=== PATIENT | female | born 1960 | race Caucasian/White ===

== ENCOUNTER 2017-01-03 10:05 | Observation (INO) | payer BC ==
--- NOTE | ~2017-01-03 | HP ---
History And Physical [id number] [facility] [place]. [address] NAME: MAUREEN LUQUE : 62 STATUS : ADM Sarah PAT#: [id number] AGE: 56 ADM/REG DATE : 01/03/17 MR#: [id number] REPORT SERV DATE: 01/03/17 DICTATED BY: FABI SUMMERS DATE: 01/03/17 REPORT STATUS : Draft TRANSCRIBED BY: PASQUALE DATE: 01/03/17 DATE OF ADMISSION: 01/03/2017 PRIMARY CARE PROVIDER: Dr. Florencio Avendaño. CHIEF COMPLAINT: Back pain. HISTORY OF PRESENT ILLNESS: This is a very pleasant 56-year-old white female with no known history of CAD, who presents to our facility describing discomfort between her shoulder blades for the past two weeks, possibly aggravated by increased stress. She also reports some oral and bilateral hand numbness that has occurred intermittently and fatigue. She denies any chest pain, pressure, or tightness. Denies any shortness of breath, nausea, diaphoresis, dizziness, or belching. The back pain at its most intense is rated at 8/10. At time of interview in the [facility], she is pain free but with a headache after the application of a transdermal nitro paste. She states the back discomfort at times lasts 20-30 minutes in duration. She did take aspirin prior to coming to the hospital. 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 The patient denies any personal history of myocardial infarction, stroke, DVT, or pulmonary embolus. The patient denies any recent fever or chills. No palpitations. No syncopal episodes. Denies PND or orthopnea. PAST MEDICAL HISTORY: 1. Depression. 2. Sleep apnea. 3. Denies hypertension, dyslipidemia, or diabetes. 4. Positive family history of early CAD. SURGICAL HISTORY: 1. Hysterectomy. 2. Tonsillectomy. 3. Cyst removed from right shoulder. SOCIAL HISTORY: She is with three children. She is employed as a nurse at [employer]. She rides a road bike eight miles twice weekly, most recently on 12/30 without incident. The patient denies any tobacco use or illicits. Occasionally consumes alcohol. FAMILY HISTORY: Father with CAD and stents in his 60s, of cancer at 74. Paternal grandmother at 48 of a heart attack. REVIEW OF SYSTEMS: A 14-point review of systems is performed, significant for HPI including reports infected right hip from hormone pellet injection two months ago for which she was treated with antibiotics, otherwise, complete review of systems is obtained and is negative. History And Physical [place] [address] [place]. [address] NAME: MAUREEN LUQUE : 62 STATUS : ADM Sarah PAT#: [id number] AGE: 56 ADM/REG DATE : 01/03/17 MR#: [id number] REPORT SERV DATE: 01/03/17 DICTATED BY: FABI SUMMERS DATE: 01/03/17 REPORT STATUS : Draft TRANSCRIBED BY: PASQUALE DATE: 01/03/17 ALLERGIES: NO KNOWN DRUG ALLERGIES HOME. HOME MEDICATIONS: Wellbutrin 300 mg daily. PHYSICAL EXAMINATION: VITAL SIGNS: Bilateral blood pressures on arrival, right 111/63 and left 112/62; pulse 64; respirations 18; temperature 98.5; O2 saturation 96% on room air. Height 5 feet 9 inches. Weight 140 pounds. BMI 20.6. GENERAL: Cooperative, in no apparent distress. HEENT: Pupils 2 mm, sclera nonicteric. Nares patent. Moist mucous membranes. No xanthelasma. NECK: Trachea midline, no thyromegaly. No JVD. No bruits. LYMPH: No cervical lymphadenopathy. No supraclavicular lymphadenopathy. RESPIRATORY: Unlabored respirations. Breath sounds clear bilaterally to posterior auscultation. No wheezes or rhonchi. No tenderness to palpation across the anterior or posterior thorax to moderate palpation on exam. CARDIOVASCULAR: Regular rate. No murmur, rub or gallop appreciated. Extremities without edema. Pulses 2+ bilaterally. ABDOMEN: Soft, nontender, nondistended, normal bowel sounds auscultated throughout. No organomegaly. SKIN: Warm, dry extremities. No pallor, or cyanosis. PSYCHIATRIC: Appropriate affect. Alert, oriented x3. LABORATORY DATA: Troponin less than 0.02, third is pending. Potassium 5.0, BUN 16, creatinine 0.82, glucose 98, magnesium 2.3. WBC 4.8, hemoglobin 14.0, hematocrit 42.7, platelet count 223,000. IMAGING: EKG: Sinus rhythm. ASSESSMENT AND PLAN: 1. Back discomfort. The patient will be observed in the [facility] overnight to rule out myocardial infarction with three sets of cardiac markers and serial EKGs. Two sets of cardiac markers are negative at present. The patient will be held n.p.o. for MPI in the morning. The patient will be discharged home if low risk and no ischemia, to follow up with her PCP. If anything suggestive of ischemia, Cardiology referral will be initiated. 2. Occasional lower extremity edema after working a shift. No added salt diet discussed, activity during shift, and possibly compression hose for lower extremity edema. None present on exam. 3. Fatigue. Check her TSH and free T4. EDGAR/PASQUALE ANURAG Ramirez, MAINTENANCE APPRENTICE-BC History And Physical [address] [address] NAME: MAUREEN LUQUE : 62 STATUS : ADM Sarah PAT#: [id number] AGE: 56 ADM/REG DATE : 01/03/17 MR#: [id number] REPORT SERV DATE: 01/03/17 DICTATED BY: FABI SUMMERS DATE: 01/03/17 REPORT STATUS : Draft TRANSCRIBED BY: MODL DATE: 01/03/17 / [id number] CC: Fabi Summers MSN, MAINTENANCE APPRENTICE-BC
[~2017-01-03 10:05] MED LIST: WELLXL300 PO
[2017-01-03 10:34] LABS: BASOPHILS 0.2 %; BASOPHILS ABSOLUTE 0.01 10/3/uL (0.0-0.16); EOSINOPHILS 0.6 %; EOSINOPHILS ABSOLUTE 0.03 10/3/uL (0.0-0.53); ER CBC TAT 0 Hrs 03 Mins; HEMATOCRIT 42.7 % (36.0-48.0); LYMPHOCYTES 18.8 %; LYMPHOCYTES ABSOLUTE 0.91 10/3/uL (0.67-4.30); MANUAL DIFF NO %; MEAN CORPUS HGB CONC 32.8 g/dL (32.0-36.0); MEAN CORPUSCULAR HEMOGLOB 32.3 pg (26.0-34.0); MEAN CORPUSCULAR VOLUME 98.4 fL (80-100); MEAN PLATELET VOLUME 10.1 fL (9.2-13.0); MONOCYTES 9.3 %; MONOCYTES ABSOLUTE 0.45 10/3/uL (0.21-1.20); NEUTROPHILS 71.1 %; NEUTROPHILS ABSOLUTE 3.44 10/3/uL (2.02-8.40); PLATELET COUNT 223 10/3/uL (150-400); RED CELL COUNT 4.34 10/6/uL (4.0-5.6); WHITE BLOOD CELLS 4.8 10/3/uL (4.5-10.5)
[2017-01-03 10:41] LABS: PARTIAL THROMBO TIME 30.1 SEC (22.5-37.2); PROTIME (NOT ORD) 13.2 SEC (12.0-14.5)
[2017-01-03 10:51] LABS: BUN (BLOOD UREA NITROGEN) 16 MG/DL (6-23); CALCIUM, SERUM 9.2 MG/DL (8.5-10.4); CHEST PAIN PROFILE TAT 0 Hrs 20 Mins; CHLORIDE, SERUM 107 MMOL/L (96-112); CO2 (CARBON DIOXIDE) 33 MMOL/L (24-34); CREATININE 0.82 MG/DL (0.55-1.02); GFR AFRICAN AMERICAN 93 ML/MIN (>=60); GFR NON AFRICAN AMERICAN 81 ML/MIN (>=60); GLUCOSE, SERUM 98 MG/DL (60-99); SODIUM, SERUM 141 MMOL/L (135-148); TROPONIN I <0.02 NG/ML (<0.05)
[2017-01-03 16:24] LABS: TROPONIN I <0.02 NG/ML (<0.05)
[2017-01-03 18:14] LABS: FREE T4 1.02 NG/DL (0.76-1.46)
== END 2017-01-04 12:15 | disposition home or self-care (01) ==
LOC: ER 10:05 → CDU1 14:10 → CDU2 14:25
PROVIDERS: Clinical Nurse Specialist; Emergency Medicine
DX: M54.9 Dorsalgia, unspecified (principal); R60.0 Localized edema; F32.9 Major depressive disorder, single episode, unspecified; G47.30 Sleep apnea, unspecified; Z82.49 Family history of ischemic heart disease and other diseases of the circulatory system; Z90.89 Acquired absence of other organs; Z90.710 Acquired absence of both cervix and uterus; Z98.890 Other specified postprocedural states
CPT/HCPCS: 71010; 80048; 83735; 84439; 84443; 84484; 85025; 85610; 85730; 93005; 93017; 93350; 99285; A9270-GY; G0378